=== PATIENT | male | born 1950 | race Caucasian/White ===

== ENCOUNTER 2024-12-05 07:36 | Day surgery (SDC) | payer MEDICARE, SELFPAY ==
--- OUTSIDE RECORDS SUMMARY | 2024-11-03 08:19 | XMS_ITS ---
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 * Medical History:? Objective: * Vitals:? Assessment: Plan: * Treatment: * Images: * The named appointment provid er may or may not be the originator of this progress note, and it is not deemed complete until electronically signed by the appointment provider. Sign off status: Pending * Provider:?Anne Marie Crowley DPM Date:?12/2024 Generated for Dimas grace/Elliot/eTransmitting on:?11/03/2024 08:18 AM EDT
--- NOTE | 2024-12-04 10:12 | HO.ANESPROP2 ---
Documented by User: Kenya Hernandez NP 12/04/24 10:13 HPI - Anesthesia Eval Consult details Narrative: 73yo M for Colonoscopy [facility] Past Medical History Medical History Obesity (BMI 30-39.9) Environmental allergies Diabetes mellitus HLD (hyperlipidemia) SADA on CPAP Panic disorder Tendinitis Seasonal allergies HTN (hypertension) Surgical History Surgical History History of surgery Hx of colonoscopy (2019) Social History Social History Patient Tobacco Use Status: Never used Tobacco Use of substances other than those prescribed or required for medical reasons: No Advance Directives: No Advance Directives Information Provided: Yes Meds Allergies Allergy/AdvReac Type Severity Reaction Status Date / Time cat dander Allergy Unknown Verified 10/27/24 14:24 SEASONAL ALLERGIES Allergy Intermediate HAYFEVER Uncoded 02/15/20 15:49 Home Medications ?Medication ?Instructions ?Recorded ?Confirmed ?Last Taken ?Type amlodipine 10 mg tablet 10 mg PO DAILY 10/27/24 10/27/24 Unknown History aspirin 325 mg tablet 325 mg PO DAILY 10/27/24 10/27/24 Unknown History docusate sodium 100 mg capsule 100 mg PO DAILY 10/27/24 10/27/24 Unknown History (Stool Softener) duloxetine 60 mg capsule,delayed 60 mg PO DAILY 10/27/24 10/27/24 Unknown History release hydralazine 25 mg tablet 25 mg PO BID 10/27/24 10/27/24 Unknown History multivitamin 1 tab PO DAILY 10/27/24 10/27/24 Unknown History simvastatin 40 mg tablet 40 mg PO BEDTIME 10/27/24 10/27/24 Unknown History valsartan 320 mg tablet 320 mg PO DAILY 10/27/24 10/27/24 Unknown History Assessment and Plan Assessment Anesthesia Assessment: Chart Reviewed Documented by User: William Gomez MD 12/05/24 14:25 [facility] Past Medical History Medical History Obesity (BMI 30-39.9) Environmental allergies Diabetes mellitus HLD (hyperlipidemia) SADA on CPAP Panic disorder Tendinitis Seasonal allergies HTN (hypertension) Family History Family history of problems with anesthesia: No Surgical History Surgical History History of surgery Hx of colonoscopy (2019) History of Problems with Anesthesia: No Social History Social History Patient Tobacco Use Status: Never used Tobacco Use of substances other than those prescribed or required for medical reasons: No Advance Directives: No Advance Directives Information Provided: Yes Meds Allergies Allergy/AdvReac Type Severity Reaction Status Date / Time cat dander Allergy Unknown Verified 10/27/24 14:24 SEASONAL ALLERGIES Allergy Intermediate HAYFEVER Uncoded 02/15/20 15:49 Home Medications ?Medication ?Instructions ?Recorded ?Confirmed ?Last Taken ?Type amlodipine 10 mg tablet 10 mg PO DAILY 10/27/24 10/27/24 Unknown History aspirin 325 mg tablet 325 mg PO DAILY 10/27/24 10/27/24 Unknown History docusate sodium 100 mg capsule 100 mg PO DAILY 10/27/24 10/27/24 Unknown History (Stool Softener) duloxetine 60 mg capsule,delayed 60 mg PO DAILY 10/27/24 10/27/24 Unknown History release hydralazine 25 mg tablet 25 mg PO BID 10/27/24 10/27/24 Unknown History multivitamin 1 tab PO DAILY 10/27/24 10/27/24 Unknown History simvastatin 40 mg tablet 40 mg PO BEDTIME 10/27/24 10/27/24 Unknown History valsartan 320 mg tablet 320 mg PO DAILY 10/27/24 10/27/24 Unknown History Exam Airway Mallampati Class: II TM Dist: >3cm Neck ROM: Full Loose/Missing/Broken Teeth: Yes Assessment and Plan Assessment Anesthesia Assessment: Anesthesia Plan Discussed Final Anesthetic Review Family History of Problems with Anesthesia: No History of Problems with Anesthesia: No NPO: Yes ASA Class: III Final Preanesthetic Review: No Changes in Pt Med Stat, Meds/Allgs Chart Reviewed, Consent Obtained/Reviewed and Anes Risks/Benef Reviewed Patient Risk: Intermediate Procedure Risk: Low Anesthetic Plan Anesthetic Plan: MAC: Disposition: Standard PACU
--- NOTE | ~2024-12-05 | CT_ITS ---
EXAMINATION: CT COLONOGRAPHY CLINICAL INFORMATION: Incomplete colonoscopy COMPARISON: 02/09/[address] abdomen and pelvis July 07, 2019 TECHNIQUE: Bowel preparation: Excellent. Stool tagging with Gastrografin and barium: Excellent. Colonic distention: CO2 mechanical insufflator used via enema tube with excellent distention. Acquisition: Low dose imaging targeted to colonic was performed in the supine and prone positions. Review: The acquired images were reviewed in axial, coronal and sagittal planes. This CT examination was performed using dose optimization techniques as appropriate, variously including the following: *Automated exposure control *Adjustment of mA and/or kV according to patient size (this includes techniques or standardized protocols for targeted exams where dose is matched to indication/reason for exam; i.e. extremities or head) *Use of iterative reconstruction technique DLP: 790 mGY*cm FINDINGS: Colonic findings: As noted on the prior study, the colon is extremely redundant which makes following through the intraluminal coarse problematic. Also portions of the lateral wall of the left colon were outside the field of view of the CT scan on the prone images. There is a possible small polypoid lesion on the lateral wall of the right colon 7-8 mm diameter (COR prone series #11-94/230, axial #[phone]/[id number], sagittal #12-227/239 and Ax Supine #7 [phone]/1066, Sag #9 205-230, COR #8 [id number]/237). There is a small sliding hernia involving gastric cardia. LUNG BASES: Streaky ground glass density in the posterior basilar left lower lobe is probably atelectasis. HEPATOBILIARY: Again seen are multiple low attenuating lesions in the liver, some of which are too small to characterize, and probably represent simple hepatic cysts. Gallbladder is unremarkable. PANCREAS: The pancreas is homogeneous and unremarkable. SPLEEN: The spleen is homogeneous and without enlargement. ADRENALS: Unremarkable without nodules or mass. GENITOURINARY: There is no hydronephrosis. There is no nephrolithiasis. There is no bladder wall thickening. LYMPHOVASCULAR: There is no adenopathy. There is no aneurysm or atherosclerotic calcifications. ABDOMINAL CAVITY: No ascites, mesenteric engorgement or fat stranding, or free air. SOFT TISSUES: Unremarkable without abnormal masses or fluid collections. Skeletal structures: Coarse trabeculation is present in T10, T11, and L1 Oden I benign vertebral hemangiomas. Bridging anterior osteophytes versus syndesmophytes present in the lower thoracic and upper lumbar spine. 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 There are osteophytes involving both hip joints and mild axial joint space narrowing. CT/CT colonography IMPRESSION: As noted on the prior study, the colon is extremely redundant which makes following through the intraluminal coarse problematic decreasing the sensitivity/specificity of this exam. Suspected 7 - 8 mm polyp involving the lateral wall of the mid to lower right colon. See above for location/Images. Moderate degenerative changes, possible ankylosing spondylitis. Electronically signed by: Rashid Gonzalez MD 12/13/2024 12:02 PM EDT
[2024-12-05 07:57] VITALS: BMI 36.6
[2024-12-05 08:11] VITALS: BP 146/73; PULSE 61; RESP 16; TEMP 36.6; O2SAT 96
[2024-12-05] MEDS: Lactated Ringers 1,000 ML 100 ML IVCONT (08:18)
--- NOTE | 2024-12-05 09:33 | MHC.SHP ---
Pre-Procedural Eval Section A - 24 Hr Update-Section A only Date of Service: 12/05/24 Section B - Complete if H&P > 30 days Chief Complaint: Encounter for screening for malignant neoplasm of Details of Present Illness: see H&P no changes Relevant Family History (Specify if Yes): No Relevant Social History: None Present Medications: see Short Stay Collaborative assessment Medical History: No relevant PMH History of Previous Operations: No relevant previous surgery Allergies: Allergies Allergy/AdvReac Type Severity Reaction Status Date / Time cat dander Allergy Unknown Verified 10/27/24 14:24 SEASONAL ALLERGIES Allergy Intermediate HAYFEVER Uncoded 02/15/20 15:49 Review of Systems Sugical H&P ROS: Negative: Constitution, Cardiovascular, Respiratory, Neurological, Psychiatric, Hem-Onc, Allergic/Immunologic, Gastrointestinal, Genitourinary, Musculoskeletal, Integumentary, Endocrine and Eyes/Ears/Nose/Throat Exam Surgical H&P Exam: Normal: HEENT, Normal: Heart, Normal: Lungs, Normal: Extremities, Normal: Abdomen, Normal: Skin and Normal: Neurological Plan Diagnosis/Plan: Unchanged I have reviewed the history and physical and performed a pertinent physical examination on my patient. No changes have occurred unless specified. Time Spent With Patient Time: Total time managing care of this patient today ____ minutes.
[2024-12-05 10:10] VITALS: BP 98/54; PULSE 52; RESP 17; TEMP 36.2; O2SAT 93
[2024-12-05 10:26] VITALS: BP 115/69; PULSE 53; RESP 16; TEMP 37.1; O2SAT 94
--- NOTE | 2024-12-05 11:43 | OP_ITS ---
DATE OF SERVICE: 12/05/2024 SURGEON: Osmar Johnson MD INDICATIONS: Colon cancer screening. PREOPERATIVE DIAGNOSIS: POSTOPERATIVE DIAGNOSIS: PROCEDURE PERFORMED: Colonoscopy to the right colon. ESTIMATED BLOOD LOSS: COMPLICATIONS: ANESTHESIA: Monitored anesthesia care. ASSISTANTS: SPECIMENS: DESCRIPTION OF PROCEDURE: A history and physical was performed. The risks and benefits of the procedure were explained to the patient. Informed consent was obtained. The patient was placed in the left lateral decubitus position. A digital rectal exam was performed and was found to be normal. The Olympus pediatric video colonoscope was introduced into the rectum and advanced to the right colon. Examination was performed. The scope was removed. The scope could not be advanced further due to looping in the sigmoid. He tolerated the procedure well and was returned to the recovery area in stable condition. FINDINGS: The visualized colonic mucosa was normal. The quality of the prep was good. No polyps were identified. It is estimated that 75% of the colon was examined. Retroflexed examination was normal. IMPRESSION: 1. Normal colonoscopy. 2. Incomplete examination due to looping in the sigmoid. The patient will have a CT colonography after recovery from anesthesia if he is agreeable. MD KENTRELL Johnson/MORTEZA / [id number]
== END 2024-12-05 11:48 | disposition home or self-care (01) ==
PROVIDERS: PCP Internal Medicine; Visit Provider Internal Medicine Gastroenterology
PROC: 0DJD8ZZ Inspection of Lower Intestinal Tract, Via Natural or Artificial Opening Endoscopic (ICD-10-PCS; CPT 45378; principal; 2024-12-05 09:10)
DX: Z12.11 Encounter for screening for malignant neoplasm of colon (principal); Z86.0101 Personal history of adenomatous and serrated colon polyps; K56.2 Volvulus; K59.00 Constipation, unspecified; I10 Essential (primary) hypertension; E78.5 Hyperlipidemia, unspecified; E11.9 Type 2 diabetes mellitus without complications; J30.2 Other seasonal allergic rhinitis; G47.33 Obstructive sleep apnea (adult) (pediatric); F41.0 Panic disorder [episodic paroxysmal anxiety]; Z99.89 Dependence on other enabling machines and devices; Z79.82 Long term (current) use of aspirin; Z79.899 Other long term (current) drug therapy
CPT/HCPCS: 45378; 74261

== ENCOUNTER → 2024-12-05 10:47 | Outpatient (BNV) | payer MEDICARE, SELFPAY | PROVIDERS: PCP Internal Medicine; Visit Provider Radiology Diagnostic Radiology | DX: K44.9 Diaphragmatic hernia without obstruction or gangrene (principal) | CPT/HCPCS: 74261 ==